=== PATIENT | male | born 1990 | race Caucasian/White ===

== ENCOUNTER 2020-10-06 17:13 | Emergency (ER) | payer SELFPAY ==
[2020-10-06] VITALS (24 sets, daily range): BP systolic 116–158; BP diastolic 61–100; PULSE 64–104; RESP 10–25; TEMP 36.6; O2SAT 94–100
--- NOTE | ~2020-10-06 | CT_ITS ---
EXAMINATION: CT brain wo con DATE: 10/06/2020 18:31 INDICATION: Generalized headache. Blurred vision. Hypertension. TECHNIQUE: Computed tomography (CT) of the head was performed without intravenous contrast. The mA wa s adjusted according to patient size. Iterative reconstruction technique was employed. Exam dose: 68 1.00 mGy-cm total exam DLP. COMPARISON: None FINDINGS: No intracranial mass lesion or hemorrhage or cerebrovascular accident. No midline shift or mass effect effect. Normal ventricular size. Normal kerns-white matter differentiation. No orbital mass lesion. There is opacification of the included very upper aspect of the right maxillary sinus. The included p aranasal sinuses and mastoid air cells are otherwise unremarkable. No fracture or bone destruction of the cranial vault. IMPRESSION: No intracranial abnormality Right maxillary sinus disease Reviewed, dictated and finalized at [facility] Reviewed, dictated and finalized at [facility].
[2020-10-06] MEDS: KETOROLAC 30 MG/ML VIAL (*BKC) IV PUSH (18:50)
[2020-10-06] MEDS: diphenhydrAMINE HCl INJ 50 MG/ML VIAL 25 MG IV PUSH (18:51)
--- NOTE | 2020-10-06 18:51 | ED.GENADULT ---
HPI - General Adult General Chief complaint: Headache Stated complaint: high BP, SUN, vision change, vomiting Time Seen by Provider: 10/06/20 18:13 Source: patient History of Present Illness HPI narrative: Patient is a 30 y/o male complaining of left sided headache starting several hours ago. He states that his headache was behind left eye with radiation to back of headache. He describes his headache as sharp and rates it as 8/10. He also has vomiting and blurred vision. Lights and sound makes his headache worse. He suspected that his BP may be high and took his father's Lisinopril [employer]. He has no focal weakness or numbness. Related Data Allergies Allergy/AdvReac Type Severity Reaction Status Date / Time No Known Allergies Allergy Verified 10/06/20 17:40 Review of Systems Constitutional: Constitutional: Denies chills, Denies fever(s), Reports headache(s) and Denies weakness Eyes: Eyes: Reports blurry vision ENT: Reports headache(s) and Denies neck pain Cardiovascular: Cardiovascular: Denies chest pain and Denies dyspnea Respiratory: Respiratory: Denies cough and Denies dyspnea Gastrointestinal: Gastrointestinal: Denies abdominal pain, Denies diarrhea, Reports nausea and Reports vomiting Genitourinary: Genitourinary: Denies hematuria and Denies dysuria Musculoskeletal: Musculoskeletal: Denies back pain and Denies neck pain Neurologic: Reports headache(s) and Denies weakness FOR[facility]LY [facility], [facility]–1983 Social History Social History Gender identity (if verbalized by the patient): Male Exam Const: General: no acute distress and well developed Orientation/consciousness: oriented to person, oriented to place, oriented to time and patient oriented x3 HENMT: Head: normocephalic Ears: external ears normal General nose exam: Normal external nose present Eyes: General: appearance normal, both eyes and all related structures Conjunctivae: conjunctivae normal Neck: Neck: normal visual inspection and full ROM Chest: Chest palpation & inspection: normal inspection of the chest and no tenderness Resp: Effort & Inspection: normal respiratory effort Auscultation: clear to auscultation bilaterally Cardio: Rate: regular rate Rhythm: regular rhythm GI: GI Palp: No abdominal tenderness and Yes Soft to palpation Skin: General skin exam: normal color and turgor normal Neuro: General: oriented to person, oriented to place, oriented to time and patient oriented x3 Cranial nerves: Yes CN's II-XII intact bilaterally Cognition (Neuro): normal cognition Speech: normal speech Motor exam (neuro): 5/5 motor strength present throughout Sensory Exam: normal sensation Coordination: [id number] test normal and [id number] test normal Extrem: General: normal to inspection, full ROM and no pedal edema Psych: Appearance: grossly normal Mental Status: mental status grossly normal Affect: normal affect Course Reevaluation(s) Reevaluation #1: Rechecked. Patient feels better. He rates his headache 10/28. Date: 10/06/20 Time: 21:25 Vital Signs Vital signs: Vital Signs Temperature 36.6 C 10/06/20 17:15 Pulse Rate 99 10/06/20 17:15 Respiratory Rate 18 10/06/20 17:15 Blood Pressure 142/86 H 10/06/20 17:15 Pulse Oximetry 96 10/06/20 17:15 Temperature 36.6 C 10/06/20 17:15 Pulse Rate 83 10/06/20 21:40 Respiratory Rate 12 10/06/20 21:40 Blood Pressure 157/86 H 10/06/20 21:40 Pulse Oximetry 100 10/06/20 21:40 Medical Decision Making Vital Signs Vital Signs: Vital Signs Temperature 36.6 C 10/06/20 17:15 Pulse Rate 99 10/06/20 17:15 Respiratory Rate 18 10/06/20 17:15 Blood Pressure 142/86 H 10/06/20 17:15 Pulse Oximetry 96 10/06/20 17:15 Temperature 36.6 C 10/06/20 17:15 Pulse Rate 83 10/06/20 21:40 Respiratory Rate 12 10/06/20 21:40 Blood Pressure 157/86 H 10/06/20 21:40 Pulse Oximetry 100 10/06/20 21:40 Lab Data Re
[2020-10-06] MEDS: SODIUM CHLORIDE 0.9% IV 1,000 ML 999 ML IV CONT (18:52)
[2020-10-06] MEDS: METOCLOPRAMIDE HCL INJ 10 MG/2 ML VIAL IV PUSH (18:52)
[2020-10-06 18:54] LABS: Basophils Percent Auto 0.3 % (0.2-1.2); Eosinophils Absolute Auto 0.1 K/mm3 (0-0.3); Eosinophils Percent Auto 0.7 % (0-4.4); Hematocrit 51.4 % (42.0-52.0); Hemoglobin 17.6 g/dL (14.0-18.0); Immature Granulocyte Absolute 0.04 K/mm3 (0.00-0.031); Immature Granulocyte Percent A 0.3 % (0-0.5); Lymphocytes Absolute Auto 1.41 K/mm3 (0.9-3.2); Lymphocytes Percent Auto 11.8 % (18.3-44.2); Mean Corpuscular HGB Conc 34.2 g/dl (32-36); Mean Corpuscular Hemoglobin 29.6 pg (26-34); Mean Corpuscular Volume 86.4 fl (80-100); Mean Platelet Volume 9.4 fl (7.4-10.4); Monocytes Absolute Auto 0.6 K/mm3 (0.1-0.6); Monocytes Percent Auto 5.1 % (2.6-8.5); Neutrophils Absolute Auto 9.7 K/mm3 (1.3-6.7); Neutrophils Percent Auto 81.8 % (45.5-73.1); Platelet Count Result 262 k/mm3 (150-375); Red Blood Count 5.95 M/mm3 (4.6-6.20); Red Cell Distribution Width 13.7 % (11.5-14.5); White Blood Count 11.9 K/mm3 (4.5-10.0)
--- NOTE | 2020-10-06 19:20 | PC.NURSE ---
Report received from MOISÉS Beasley. Assumed care of patient at this time.
[2020-10-06 19:55] LABS: Anion Gap 5 mmol/L (8-16); Blood Urea Nitrogen 12 mg/dL (9-20); Calcium 8.8 mg/dL (8.4-10.2); Carbon Dioxide 30 mmol/L (22-30); Chloride 102 mmol/L (98-107); Estimated CRCL calculation 131 ml/min; Estimated Glomerular Filt Rate > 60; Glucose 108 mg/dL (75-110); Potassium 4.4 mmol/L (3.4-5.0); Sodium 137 mmol/L (137-145)
[2020-10-06] MEDS: DIHYDROERGOTAMINE MESYLATE 1 MG/ML AMP IV PUSH (20:38)
== END 2020-10-06 21:42 | disposition home or self-care (01) ==
PROVIDERS: Emergency Provider Emergency Medicine; PCP Nurse Practitioner Family
DX: R51.9 Headache, unspecified (principal); I10 Essential (primary) hypertension
CPT/HCPCS: 36415; 70450; 80048; 85025; 96361; 96374; 96375; 99284; J1110; J1200; J1885; J2765; J7030

== ENCOUNTER 2020-10-09 17:05 | Emergency (ER) | payer SELFPAY ==
[2020-10-09 17:12] VITALS: BP 158/97; PULSE 99; RESP 16; TEMP 36.4; O2SAT 99
[2020-10-09 17:19] VITALS: BP 158/97; PULSE 102; RESP 16; TEMP 36.4; O2SAT 99
--- NOTE | 2020-10-09 17:22 | ED.HA ---
HPI - Headache General Chief Complaint: Headache Stated Complaint: HEADACHE Source: patient Mode of arrival: ambulatory Limitations: no limitations History of Present Illness HPI Narrative: Patient is a 30 year old male who presents complaining of headache. Patient reports being seen in ED for same on 10/06. Patient reports pressure to head, denies photophobia, nausea or vomiting. Reports intermittent blurred vision that has resolved. Patient describes pain as shooting pain behind left eye. Patient reports being diagnosed with high blood pressure in ED and started on Lisinopril. Patient has not seen physician for follow up as of this time. Patient is reporting pain to head of 11/28. Reports taking over the counter meds with limited relief. MD elicited complaint: headache Onset description: on awakening Location: right Related Data Allergies Allergy/AdvReac Type Severity Reaction Status Date / Time No Known Allergies Allergy Verified 10/09/20 19:34 Review of Systems Review of Systems: Narrative: CONSTITUTIONAL: Denies fever, chills, or sweats. EYES: Reports visual changes which have resolved, redness to left eye, denies discharge. ENT: Denies rhinorrhea, congestion, sore throat, or otalgia. CARDIOVASCULAR: Denies chest pain, palpitations, or edema. RESPIRATORY: Denies cough or dyspnea. GASTROINTESTINAL: Denies abdominal pain, nausea, vomiting, or diarrhea. GENITOURINARY: Denies dysuria or hematuria. SKIN: Denies rash or itching. MUSCULOSKELETAL: Denies back pain, joint pain, or myalgia. NEUROLOGIC: Reports headache, denies numbness, dizziness, or weakness. PSYCHIATRIC: Denies anxiety or depression. PMFSH Past Medical History Medical History HTN (hypertension) Social History Social History (Updated 10/09/20 @ 17:54 by FARIDA Bridges) Smoking status: Current every day smoker Tobacco type: cigarettes Alcohol intake: current Substance use: never Gender identity (if verbalized by the patient): Male Comments At the time of signature, I have reviewed and agree with nursing past medical, surgical, social, and family history unless otherwise noted. Please see nursing chart for further information. There is no relevant family history pertinent to the presenting complaint. Exam Narrative: Exam Narrative: GENERAL: Well-appearing, well-nourished, and in no acute distress. HEAD: Normocephalic, atraumatic. EYES: EOMI. No redness or drainage. Conjunctiva are normal. ENT: Mucous membranes pink and moist. NECK: AROM. Supple. No lymphadenopathy. CHEST: No respiratory distress. HEART: Regular rate and rhythm. EXTREMITIES: Normal range of motion. No edema. SKIN: Warm, dry, no rash. NEURO: No focal deficits. Alert and oriented x3. Gait steady. PSYCH: Normal affect. No signs of depression or anxiety. Course Vital Signs Vital signs: Vital Signs Temperature 36.4 C L 10/09/20 17:12 Pulse Rate 99 10/09/20 17:12 Respiratory Rate 16 10/09/20 17:12 Blood Pressure 158/97 H 10/09/20 17:12 Pulse Oximetry 99 10/09/20 17:12 Temperature 36.4 C L 10/09/20 17:19 Pulse Rate 102 H 10/09/20 17:19 Respiratory Rate 16 10/09/20 17:19 Blood Pressure 158/97 H 10/09/20 17:19 Pulse Oximetry 99 10/09/20 17:19 Reviewed Transfer Transfered to: [place] Transfer rationale: Higher Level of Care Accepting physician: Dr. Reno Transfer comments: Patient refuses EMS. MDM - Headache MDM Narrative Medical decision making narrative: Discussed with patient the need for further evaluation because of limited resources at and that he has recently been seen in the ED for same. Patient agrees with plan of care. Patient to be transferred to [facility] for further evaluation. Differential Diagnosis Differential diagnosis: Likely migraine, tension headache, subarachnoid hemorrhage, headache, meningitis and sinusitis Medical Records Attestation:
== END 2020-10-09 17:55 | disposition short-term general hospital (02) ==
LOC: EXPGLEN 17:07
PROVIDERS: Emergency Provider Nurse Practitioner
DX: R51.9 Headache, unspecified (principal); F17.210 Nicotine dependence, cigarettes, uncomplicated; I10 Essential (primary) hypertension
CPT/HCPCS: 99212; G0463

== ENCOUNTER 2020-10-09 18:09 | Emergency (ER) | payer SELFPAY ==
[2020-10-09 18:20] VITALS: BP 165/115; PULSE 106; RESP 18; TEMP 35.5; O2SAT 100
--- NOTE | 2020-10-09 18:26 | ED.GENADULT ---
HPI - General Adult General Chief complaint: Headache Stated complaint: headache Time Seen by Provider: 10/09/20 18:23 History of Present Illness HPI narrative: Patient is a 30-year-old male who comes to the ED today complaining of a headache. Patient reports the headache is left-sided, described as sharp and stabbing. Located primarily above his left ear and around his left eye. Does not involve his right side. Notes that this initially started a few days ago, he came to the emergency room and had a work-up done and received some medicines that made his symptoms a little better but did not completely go away, he felt a little better yesterday but this morning his symptoms returned. He admits to associated nausea and vomiting today. This was present a few days ago as well, was not present yesterday. He is concerned about his elevated blood pressure. He is on blood pressure medicine but he most likely vomited it up earlier today. Related Data Allergies Allergy/AdvReac Type Severity Reaction Status Date / Time No Known Allergies Allergy Verified 10/09/20 19:34 Review of Systems Constitutional: Constitutional: Reports as per HPI, Denies fever(s), Denies night sweats and Denies weakness Cardiovascular: Cardiovascular: Denies chest pain, Denies edema, Denies leg edema, Denies dyspnea and Denies orthopnea Respiratory: Respiratory: Denies cough and Denies dyspnea Gastrointestinal: Gastrointestinal: Denies abdominal pain, Denies constipation, Denies diarrhea, Denies nausea and Denies vomiting Musculoskeletal: Musculoskeletal: Denies abnormal gait, Denies back pain, Denies numbness and Denies tingling Neurologic: Denies Abnormal speech present, Denies abnormal gait, Denies numbness, Denies tingling and Denies weakness Comments: See HPI for headache Psychiatric: Psychiatric: Denies homicidal ideation and Denies suicidal ideation [facility] Past Medical History Medical History HTN (hypertension) Social History Social History (Updated 10/09/20 @ 17:54 by FARIDA Bridges) Smoking status: Current every day smoker Tobacco type: cigarettes Alcohol intake: current Substance use: never Gender identity (if verbalized by the patient): Male Exam Const: General: cooperative, healthy appearing, no acute distress, well developed, alert, awake and Physically active Orientation/consciousness: patient oriented x3 Other: Pleasant, uncomfortable appearing HENMT: Head: normal to inspection, normocephalic and atraumatic Ears: external ears normal General nose exam: Normal external nose present Other: Tender to palpate over posterior left side of head along greater occipital nerve. No overlying rash. Mastoid normal. Both TMs normal. Eyes: General: appearance normal, both eyes and all related structures Pupils: Equal, round and reactive pupils present EOM: EOMs intact bilaterally Neck: Neck: normal visual inspection Chest: Chest palpation & inspection: normal inspection of the chest and no tenderness Resp: Effort & Inspection: normal respiratory effort and able to speak in complete sentences Auscultation: clear to auscultation bilaterally Cardio: Rate: regular rate Rhythm: regular rhythm GI: Inspection: normal to inspection GI Palp: No abdominal tenderness : General: Yes no CVA tenderness Back/Spine/Pelvis: Back: no CVA tenderness Skin: General skin exam: normal color and no rashes or lesions noted Lesions: no lesions Other: No overlying rash on left side of head Neuro: General: patient oriented x3, gait normal, tone normal, moves all extremities, Normal light touch and pain sensation, no meningeal signs, no focal motor deficits and CN's II-XI intact bilaterally Cranial nerves: Yes CN's II-XII intact bilaterally and Yes Equal, round and reactive pupils present Cognition (Neuro): normal cognition Speech: normal speech and No Abnormal speech present Gait exa
[2020-10-09] MEDS: TRIAMCINOLONE ACET INJ SUSP 50 MG/5 ML VIAL IM (19:28)
[2020-10-09] MEDS: methylPREDNISolone SOD SUCC 125 MG VIAL IM (19:29)
[2020-10-09 19:33] VITALS: BP 163/87; PULSE 87; RESP 20; O2SAT 100
== END 2020-10-09 19:52 | disposition home or self-care (01) ==
PROVIDERS: Emergency Provider Emergency Medicine; PCP Nurse Practitioner Family
DX: M54.81 Occipital neuralgia (principal); I10 Essential (primary) hypertension
CPT/HCPCS: 64405; 64999; 96372; 99284; J2930; J3301

== ENCOUNTER 2023-08-10 16:30 | Emergency (ER) | payer BC, SELFPAY | END 2023-08-10 16:53 | disposition left against medical advice (07) | DX: Z53.21 Procedure and treatment not carried out due to patient leaving prior to being seen by health care provider (principal) | CPT/HCPCS: 99199 ==